=== PATIENT | male | born 1995 | race Two or more races ===

== ENCOUNTER 2017-01-22 15:35 | Emergency (ER) | payer BC ==
[2017-01-22 15:37] VITALS: BP 134/61
--- NOTE | 2017-01-22 16:16 | ED.ADGEN ---
Past History Past Medical History: No Pertinent History Past Surgical History: No Surgical History Alcohol Use: None Drug Use: None Adult General Chief Complaint Chief Complaint Vomiting diarrhea HPI HPI Patient is a 21-year-old college student presents nausea vomiting and nonbloody diarrhea for the past 3 days. Patient reports body aches, sore throat several days and fever 3 days ago. Multiple loose stools daily. Patient last vomited this morning. Tolerating oral fluids. Cramping abdominal pain with diarrhea. Recent GI illness exposure. Review of Systems Review of Systems ROS as per HPI. Allergies Allergies Allergies Coded Allergies Type Severity Reaction Last Updated Verified No Known Drug Allergies 01/22/17 No Physical Exam Physical Exam Constitutional: Well developed, well nourished, no acute distress, non-toxic appearance. HENT: Normocephalic, atraumatic, bilateral external ears normal, oropharynx moist, no oral exudates, nose normal. Eyes: PERRLA, EOMI, conjunctiva normal. Neck: Normal range of motion, no tenderness, supple, no stridor. Cardiovascular:Heart rate regular rhythm, no murmur. Lungs & Thorax: Bilateral breath sounds clear to auscultation. Abdomen: Bowel sounds normal, soft, nondescript abdominal pain, no rigidity or guarding. Skin: Warm, dry. Back: No tenderness. Extremities: No tenderness. Neurologic: Alert and oriented X 3, normal motor function, normal sensory function, no focal deficits noted. Psychologic: Affect normal, judgement normal, mood normal. Current Patient Data Vital Signs Vital Signs Date Time Temp Pulse Resp B/P Pulse Ox O2 Delivery O2 Flow Rate FiO2 01/22/17 15:37 98.8 72 18 97 Room Air EKG EKG [] Radiology/Procedures Radiology/Procedures [] Impressions: Vomiting and diarrhea with non-surgical abdominal pain. Course & Med Decision Making Course & Med Decision Making Pertinent Labs and Imaging studies reviewed. (See chart for details) [Symptoms consistent with GI illness prevalent in the community.Will treat supportively with PCP follow-up. Return precautions reviewed. Final Impression Final Impression [1 nausea vomiting and diarrhea] Problems: Dragon Disclaimer Dragon Disclaimer This electronic medical record was generated, in whole or in part, using a voice recognition dictation system. SERGEY ODONNELL DO Jan 22, 2017 16:16
== END 2017-01-22 16:05 | disposition home or self-care (01) ==
LOC: ER 15:35
DX: R11.2 Nausea with vomiting, unspecified (principal); R19.7 Diarrhea, unspecified; R10.9 Unspecified abdominal pain; J02.9 Acute pharyngitis, unspecified
CPT/HCPCS: 99283

== ENCOUNTER 2017-07-19 11:35 | Emergency (ER) | payer BC ==
[~2017-07-19] VITALS: Ht 182.9 cm; Wt 175.0 kg
[2017-07-19 11:38] VITALS: BP 136/57
[2017-07-19] MEDS ORDERED: DIPHTH,PERTUSS(ACELL),TET TOX 0.5 ML DISP.SYRIN. VAX IM ONE (11:45)
[2017-07-19] MEDS ORDERED: ONDANSETRON PF 4 MG/2 ML VIAL. IV ONE (12:00)
[2017-07-19] MEDS: HYDROmorphone PF 1 MG/ML DISP.SYRIN IV PRN ×2 (12:02→12:37)
--- NOTE | 2017-07-19 12:07 | RAD ---
Right hand, 3 views, 07/19/2017: History: Lawnmower injury There are amputation type injuries involving the soft tissues at the tips of the middle and ring fingers. There are underlying comminuted fractures of the distal aspects of the distal phalanges of both of these fingers with small displaced fracture fragments. The DIP joints are uninvolved. No other fracture or dislocation is identified. IMPRESSION: Comminuted fractures of the distal ends of the distal phalanges of the middle and ring fingers.
[2017-07-19] MEDS ORDERED: ACETAMINOPHEN 500 MG TABLET PO ONE (12:15)
[2017-07-19] MEDS ORDERED: LIDOCAINE WITH 8.4% SOD BICARB 3 ML DISP.SYRIN. IJ ONE (12:30)
[2017-07-19] MEDS ORDERED: HYDR-2758 PO (13:29)
[2017-07-19] MEDS ORDERED: AMOX1TAB61 PO (13:29)
--- NOTE | 2017-07-19 13:34 | PHYS DOC ---
Past History Past Medical History: No Pertinent History Past Surgical History: No Surgical History Alcohol Use: None Drug Use: None Adult General Chief Complaint Chief Complaint: FINGER INJURY HPI HPI 21-year-old male presenting to the emergency department today after injuring his right hand by raising his hand underneath a lawnmower. He has pain in his hand is sharp severe constant nonradiating without alleviating factors. This occurred approximately 30 minutes prior to arrival. He is right-hand dominant and reports that his tetanus is up-to-date. Review of systems is negative for any injury in his wrist or elbow. He denies any other traumatic injury. He denies chest pain shortness of breath. All other review of systems is negative unless otherwise noted in history of present illness. ED course: 21-year-old right-hand dominant male presenting to the emergency department today after suffering a partial finger amputation of the distal phalanx on the third and fourth distal phalanx of his right hand. The wound was washed out after the patient was given IV pain medication and to phalangeal nerve blocks were obtained. The wound was assessed with good lighting and good hemostasis. There is no visible bone protruding from the injury and no hard bone to palpation of the soft tissue exposed. I called [facility] for possible transfer and consultation of plastic surgery and discussed the case with Dr. REYEZ and Dr. Gilson Kinney the plastic surgeon. After discussing the case , plastic surgeon recommends suture together what I can, placed the patient and nonadherent dressing bandages to follow-up with him on Friday at 3:30 PM in clinic. X-rays of the extremity show distal phalanx fractures on both fingers. The patient's fourth phalanx I used simple unerupted technique to loosely reapproximate some of the macerated tissue. The patient was then discharged home in stable condition. They were to return if their symptoms worsened or if they were concerned for any reason. [id number] discharge instructions and return precautions were given. Patient's questions were answered to their satisfaction. Patient is comfortable plan. Review of Systems Review of Systems SEE ABOVE. Current Medications Current Medications Current Medications Medications (Trade) Dose Ordered Sig/Nyasia Start Time Stop Time Status Last Admin Dose Admin Acetaminophen (Tylenol) 1,000 mg 1X ONCE 07/19/17 12:15 07/19/17 12:16 DC Diphtheria/ Tetanus/Acell Pertussis (Boostrix) 0.5 ml ONCE ONCE 07/19/17 11:45 07/19/17 11:47 DC Hydromorphone HCl (Dilaudid) 0.5 mg PRN Q30MIN PRN 07/19/17 11:45 07/19/17 12:37 0.5 MG Lidocaine/Sodium Bicarbonate (Buffered Lidocaine 1%) 12 ml 1X ONCE 07/19/17 12:30 07/19/17 12:31 DC Ondansetron HCl (Zofran) 4 mg 1X ONCE 07/19/17 12:00 07/19/17 12:01 DC 07/19/17 12:10 4 MG Allergies Allergies Allergies Coded Allergies Type Severity Reaction Last Updated Verified No Known Drug Allergies 01/22/17 No Physical Exam Physical Exam Constitutional: Well developed, well nourished, no acute distress, non-toxic appearance. HENT: Normocephalic, atraumatic, bilateral external ears normal, oropharynx moist, no oral exudates, nose normal. [] Eyes: PERRLA, EOMI, conjunctiva normal, no discharge. Neck: Normal range of motion, no tenderness, supple, no stridor. [] Cardiovascular:Heart rate regular rhythm, no murmur Lungs & Thorax: Bilateral breath sounds clear to auscultation [] Abdomen: Bowel sounds normal, soft, no tenderness, no masses, no pulsatile masses. Skin: Warm, dry, no erythema, no rash. [] Back: No tenderness, no CVA tenderness. Extremities: Right hand shows partially dictation of the third and fourth distal phalanx of the right hand. Otherwise patient has normal neurovascular status. Palpable pulse. 2 second cap refill. Normal sensation on the radial and ulnar aspect of both phalanxes. Neurologic: Alert and oriented X 3, normal motor function, normal sensory function, no focal deficits noted. Psychologic: Affect normal, judgement normal, mood normal. [] Current Patient Data Vital Signs Vital Signs Date Time Temp Pulse Resp B/P (MAP) Pulse Ox O2 Delivery O2 Flow Rate FiO2 07/19/17 12:37 12 07/19/17 11:38 98.2 54 98 Room Air EKG EKG [] Radiology/Procedures Radiology/Procedures [] Course & Med Decision Making Course & Med Decision Making Pertinent Labs and Imaging studies reviewed. (See chart for details) [] Dragon Disclaimer Dragon Disclaimer This chart was dictated in whole or in part using Voice Recognition software in a busy, high-work load, and often noisy Emergency Department environment. It may contain unintended and wholly unrecognized errors or omissions. Departure Departure: Impression: Primary Impression: Partial traumatic transphalangeal amputation of finger Additional Impressions: Finger laceration Laceration of finger of left hand with damage to nail Phalanx, distal fracture of finger Disposition: 01 HOME, SELF-CARE Condition: STABLE Referrals: PCP,NO (PCP) Patient Instructions: Crush Injury, Fingers or Toes, Finger Fracture, Fingertip Injuries and Amputations Additional Instructions: Follow-up with Dr. Gilson Kinney at [facility] by calling [phone]. You have an appointment with him at 3:30 PM in his office. [facility] [address] [place] [address] Fax [facility] [address] [place] [address] Fax [facility] [address] [place] [address] Fax Thank you for allowing us to participate in your care today. Call your Primary Doctor tomorrow and inform them of your visit today. If you do not have a primary care provider you can ask for a list of our primary care providers. Return to the emergency department you have any new or concerning findings. This should be evaluated by the primary care physician and any necessary consulting services for continued management within a few days after discharge. Return to emergency room if you have any new or concerning symptoms including but not limited to fever, chills, nausea, vomiting, intractable pain, any new rashes, chest pain, shortness of air, uncontrolled bleeding, difficulty breathing, and/or vision loss. You may have been prescribed medication that can change in your level of thinking and ability to operate machinery. These medications include hydrocodone and Ativan. Also, Benadryl has been known to do this as well. Be sure to check with your pharmacist and ask if the medications you've prescribed can affect your level of consciousness. I recommend not operating heavy machinery or driving while on medication such as these. Scripts Hydrocodone Bit/Acetaminophen (HYDROCODONE-APAP 5-325 ) 1 Each Tablet 1 TAB PO PRN Q6HRS Y for PAIN, #10 TAB 0 Refills Prov: DULCE MARIA HILARIO MD 07/19/17 Amoxicillin/Potassium Clav (AUGMENTIN 875-125 TABLET) 1 Each Tablet 1 TAB PO BID, #14 TAB Prov: DULCE MARIA HILARIO MD 07/19/17 Problem Qualifiers DULCE MARIA HILARIO MD Jul 19, 2017 13:34
== END 2017-07-19 13:48 | disposition home or self-care (01) ==
LOC: ER 11:35
DX: S62.632A Displaced fracture of distal phalanx of right middle finger, initial encounter for closed fracture (principal); S62.634A Displaced fracture of distal phalanx of right ring finger, initial encounter for closed fracture; W28.XXXA Contact with powered lawn mower, initial encounter; Y93.89 Activity, other specified; Y99.8 Other external cause status; Y92.89 Other specified places as the place of occurrence of the external cause
CPT/HCPCS: 64450; 73130; 96374; 96375; 96376; 99284; J1170; J2405